=== PATIENT | male | born 1995 | race Caucasian/White ===

== ENCOUNTER 2019-05-27 14:13 | Emergency (ER) | payer OTHER ==
[2019-05-27 14:26] VITALS: BP 134/76
--- NOTE | 2019-05-27 14:52 | ED Physician Documentation ---
PD HPI MALE - Stated complaint Stated Complaint: MALE - Chief complaint Chief Complaint: General - History obtained from History obtained from: Patient - History of Present Illness Timing - onset: How many days ago (several) Timing - duration: Days Timing - details: Gradual onset Pain level max: 4 Pain level now: 3 Associated symptoms: Genital sore / lesion (states redness to the penis). No: Dysuria, Urinary frequency, Unable to urinate, Hematuria, Discharge, Testiclar pain, Scrotal swelling PD HPI MALE CONTRIB FACTORS: Sexually active - Additional information Additional information: girlfriend seen here 2 days ago and states had a "cervical eruption" Review of Systems Constitutional: denies: Fever, Chills Respiratory: denies: Cough GI: denies: Vomiting, Diarrhea : denies: Dysuria, Incontinent, Testicular pain, Testicular mass Musculoskeletal: denies: Neck pain, Back pain Neurologic: denies: Headache PD PAST MEDICAL HISTORY - Past Medical History Past Medical History: No Other Past Medical History: denies - Past Surgical History Past Surgical History: No - Present Medications Home Medications: Ambulatory Orders Medication Instructions Recorded Confirmed Clotrimazole 1 applic TP BID 7 Days #1 cream..g. 05/27/19 Ibuprofen [Motrin] 800 mg PO Q8H PRN #30 tablet 05/27/19 - Allergies Allergies/Adverse Reactions: Allergies Allergy/AdvReac Type Severity Reaction Status Date / Time No Known Drug Allergies Allergy Verified 05/27/19 14:26 - Social History Does the pt smoke?: Yes Smoking Status: Current some day smoker Does the pt drink ETOH?: Yes Does the pt have substance abuse?: No - Immunizations Immunizations are current?: Yes PD ED PE NORMAL - Vitals Vital signs reviewed: Yes - General General: Alert and oriented X 3, No acute distress - Neck Neck: Supple, no meningeal sign - Cardiac Cardiac: RRR, Strong equal pulses - Respiratory Respiratory: No respiratory distress, Clear bilaterally - Abdomen Abdomen: Soft, Non tender, Non distended - Male Male : Other (small erythematous papules and skin breakdown around the glans. o/w normal exam) - Derm Derm: Warm and dry - Neuro Neuro: Alert and oriented X 3 - Psych Psych: Normal mood, Normal affect Results - Vitals Vitals: Vital Signs - 24 hr 05/27/19 05/27/19 14:24 14:58 Temperature 36.7 C Heart Rate 99 Respiratory 18 Rate Blood Pressure 134/76 H O2 Saturation 100 Oxygen O2 Source Room air PD MEDICAL DECISION MAKING - ED course Complexity details: considered differential, d/w patient ED course: Patient's girlfriend gave permission to access her records. Was treated for BV and yeast infection. Will treat for yeast infection. Negative STD screen. Patient counseled regarding signs and symptoms for which I believe and urgent re-evaluation would be necessary. Patient with good understanding of and agreement to plan and is comfortable going home at this time This document was made in part using voice recognition software. While efforts are made to proofread this document, sound alike and grammatical errors may occur. Departure - Departure Disposition: 01 Home, Self Care Clinical Impression: Candidal balanitis Condition: Good Instructions: ED Candidiasis Cutaneous Follow-Up: RUDDY VARGAS MD [Primary Care Provider] - Within 1 week Prescriptions: Clotrimazole 1 applic TP BID 7 Days #1 cream..g. Ibuprofen [Motrin] 800 mg PO Q8H PRN #30 tablet PRN Reason: PAIN &/OR FEVER Comments: Apply to affected area twice a daily for 1 week. Return if you worsen.
== END 2019-05-27 15:02 | disposition home or self-care (01) ==
LOC: ED 14:13
DX: B37.42 Candidal balanitis (principal); F17.200 Nicotine dependence, unspecified, uncomplicated
CPT/HCPCS: 99282; 99284